=== PATIENT | female | born 1985 | race Caucasian/White ===

== ENCOUNTER 2023-05-19 17:16 | Emergency (ER) | payer BC ==
[~2023-05-19 17:16] MED LIST: Iopamidol 300 61% 100 ML VIAL FS ONE
[2023-05-19] MEDS ORDERED: Ondansetron PF 4 MG/2 ML Vial ONE (18:30)
[2023-05-19 19:13] LABS: #Eosinphils 0.1 10x3/uL (0.0-0.5); #Monocytes 0.9 10x3/uL (0.0-1.1); #Neutrophils 12.5 10x3/uL (1.5-8.4); %Basophils 0.3 % (0.0-2.0); %Eosinophils 0.5 % (0.0-6.0); %Lymphocytes 8.2 % (18.0-47.0); %Monocytes 6.2 % (0.0-10.0); %Neutrophils 84.5 % (40.0-75.0); Hematocrit 39.3 % (34.9-44.5); Hemoglobin 13.8 g/dL (12.0-15.5); Mean Corpuscular HGB CONC 35.1 g/dL (32.0-36.0); Mean Corpuscular Hemoglobin 32.8 pg (27.0-33.0); Mean Corpuscular Volume 93.3 fl (81.6-98.3); Mean Platelet Volume 9.6 fl (7.4-10.4); Platelet Count 268 10x3/uL (150-450); RBC Distribution Width 11.7 % (11.5-14.5); Red Blood Cell (RBC) Count 4.21 10x6/uL (3.90-5.03); White Blood Cell (WBC) Count 14.8 10x3/uL (3.5-10.5)
[2023-05-19 19:15] LABS: BHCG - Serum Negative (NEGATIVE)
[2023-05-19 19:16] LABS: Pregs Control Background? CLEAR/WHITE (CLR/WHITE); Pregs Control Bar Appear? YES (CONTROL BAR)
[2023-05-19 19:16] LABS: Bilirubin Neg (Negative); Blood, Urine Negative (Negative); Clarity Clear (Clear); Glucose, Urine (Dipstick) Normal (Negative); Ketone, Urine Negative (Negative); Leukocyte Negative (Negative); Nitrite Negative (Negative); Protein, Urine (Dipstick) Negative (Neg-Trace)
[2023-05-19 19:23] LABS: ALT (SGPT) 59 U/L (8-55); AST (SGOT) 100 U/L (5-34); Alkaline Phosphatase 48 U/L (40-110); Anion Gap 11 mmol/L (10-20); BUN (Urea Nitrogen) 10 mg/dL (7.0-18.7); Bilirubin, Total 0.5 mg/dL (0.2-1.2); Calc. Creatinine Clearance 0 mL/min (70-130); Carbon Dioxide 26 mmol/L (22-29); Chloride 108 mmol/L (98-107); Estimated GFR 114; Globulin 2.8 g/dL (2.4-3.5); Glucose 122 mg/dL (70-105); Lipase 25 U/L (8-78); Potassium 4.3 mmol/L (3.5-5.1); Protein, Total 6.8 g/dL (6.0-8.3); Sodium 141 mmol/L (136-145)
[2023-05-19 19:30] LABS: Bacteria/HPF 1+ HPF (None Seen); CAUTI Indications for Culture Pelvic or flank pain; RBC/HPF 0-3 HPF (0-3); Squamous Epithelial 0-3 HPF (0-3); WBC/HPF 0-3 HPF (0-3)
[2023-05-19 19:31] LABS: Mucous/LPF Rare LPF (<2+)
[2023-05-19 19:32] LABS: Urine Culture Reflex No No
[2023-05-19] MEDS ORDERED: Ketorolac Tromethamine 30 MG/ML VIAL ONE (19:45)
[2023-05-19 20:09] LABS: SARS-CoV-2 NAA Rapid Test Not Detected (NotDetected)
== END 2023-05-19 20:24 | disposition home or self-care (01) ==
LOC: CSHERS 17:16
DX: R19.7 Diarrhea, unspecified (principal); R11.2 Nausea with vomiting, unspecified; Z20.822 Contact with and (suspected) exposure to COVID-19
CPT/HCPCS: 74177; 80053; 81001; 83690; 84703; 85025; 96374; 96375; J1885; J2405; Q9967

== ENCOUNTER 2025-03-27 08:41 | Outpatient (CLI) | payer OTHER | END 2025-03-27 08:42 | disposition home or self-care (01) | LOC: CSHULT 08:41 | PROVIDERS: ATTEND Family Medicine | DX: R16.1 Splenomegaly, not elsewhere classified (principal); R16.2 Hepatomegaly with splenomegaly, not elsewhere classified | CPT/HCPCS: 76700 ==

== ENCOUNTER 2025-06-05 08:50 | Outpatient (CLI) | payer OTHER ==
[2025-06-05] MEDS ORDERED: Iopamidol 370 76% 100 ML VIAL ONE (11:12)
== END 2025-06-05 08:51 | disposition home or self-care (01) ==
LOC: CSHCT 08:50
PROVIDERS: ATTEND Internal Medicine Gastroenterology
DX: R16.2 Hepatomegaly with splenomegaly, not elsewhere classified (principal); E66.9 Obesity, unspecified; R10.13 Epigastric pain; T78.19XA Other adverse food reactions, not elsewhere classified, initial encounter
CPT/HCPCS: 74160